=== PATIENT | male | born 1950 | race Caucasian/White ===

== ENCOUNTER 2021-10-22 11:39 | Inpatient (IN) | payer MEDICARE, MEDICAID, SELFPAY ==
[2021-10-22 12:36] VITALS: BP 132/85; PULSE 104; RESP 18; TEMP 36.8; O2SAT 98
--- NOTE | 2021-10-22 14:12 | HO.PSYADMNOT ---
HPI Date of Service: 10/22/21 Chief Complaint: schizoaffective d/o Sources of Information: patient interviewed, chart reviewed and crisis/core team assessment reviewed HPI Subjective Notes: Matthews Warning and Section 12B Narrative: The patient is a 71-year-old male, single, with no children, unemployed on disability, with a long history of psychotic disorder who resides in a supported living facility for chronically mentally ill patients, referred from another hospital for exacerbation of psychosis. According to that group, staff the patient has been in the [facility] several weeks and he had stopped his medications. The staff reported paranoid delusions, feeling unsafe and he mentioned that were intruders in his home tampering with his food and his belongings. He also believed that there are cameras over his head. On interview the patient was very pleasant, but he was paranoid and scared, he stated that his neighbors were harassing him with electronic devices and he came up with a very bizarre delusion regarding that the weight house and President mague were his guardians. He was able to contract for safety in the facility. He denies active suicidal ideations Past Psychiatric History: As per the patient, he has been most of his life admitted in to several facilities. Apparently, he has been on [facility] for long-term hospitalization. Medical Evaluation Reviewed: Hospitalist [facility] Pending [facility] Narrative: Denies medical problems Family History: Denies Social History: Chronically institutionalized, resident of a detention, he has a guardian and most likely on a [place] order Substance History: Denies Trauma History: Unknown Diagnostics Vital Signs (24Hr): Vital Signs - 24 hr 10/22/21 12:36 Temperature 98.3 F Pulse Rate 104 H Respiratory Rate 18 Blood Pressure 132/85 Pulse Oximetry 98 Meds/Allergies Meds Home Medications Acetaminophen (Acetaminophen 325 Mg Tablet) 650 mg PO Q6H PRN PRN Reason: Headache/Pain Mild Scale (1-3) Al Hydroxide/Mg Hydroxide (Magnesium Hydrox/Alum Hydrox 30 Ml Oral.Susp) 30 ml PO Q6H PRN PRN Reason: Heartburn/Nausea Divalproex Sodium (Divalproex Sodium 250 Mg Tablet.Dr) 250 mg PO BID SHERRY Hydroxyzine HCl (Hydroxyzine Hcl 25 Mg Tablet) 25 mg PO BEDTIME PRN PRN Reason: Anxiety Magnesium Hydroxide (Milk Of Magnesia 30 Ml Oral.Susp) 30 ml PO DAILY PRN PRN Reason: Constipation Olanzapine (Olanzapine 5 Mg Tablet) 5 mg PO BID PRN PRN Reason: Agitation Olanzapine (Olanzapine 7.5 Mg Tablet) 15 mg PO DAILY SHERRY Trazodone HCl (Trazodone Hcl 50 Mg Tablet) 50 mg PO BEDTIME PRN PRN Reason: Insomnia Allergies Allergies Allergy/AdvReac Type Severity Reaction Status Date / Time fluphenazine Allergy Unknown Verified 10/22/21 12:18 haloperidol [From Haldol] Allergy Unknown Verified 10/22/21 12:18 Mental Status Exam Mental Status Exam Patient Appearance: Disheveled and Unkempt Patient Orientation: Person and Situation Level of Consciousness: Awake Patient Behavior: Cooperative and Passive Mood Description: Suspicious and Withdrawn Affect Description: Labile Patient Cognition Impaired: Yes Ability to Follow Directions: Fair Speech Pattern: Clear Hallucinations: Auditory Delusions: Paranoid Ideation, Grandiose and Bizarre Thought Process: Racing and Evasive Thought Content: positive for Loose Associations and positive for Thought Blocking Judgement: Poor Assessment & Plan Assessment & Plan (1) Schizoaffective disorder: Status: Acute Code(s): F25.9 - Schizoaffective disorder, unspecified Plan The patient is a middle-age male with a long history of psychosis and mood lability, chronically situational lysed referred for out of our catchment area for exacerbation of psychotic symptoms and inability to take care of himself. Apparently, he has a guardian and most likely a years order, he is case managed by [facility]. Plan 1. Continue Zyprexa and Depakote as per medication reconciliation. 2. Gather collateral information. 3. Hospitalist consult since the patient is a direct admission Patient educated on: diagnosis and medication risk/benefits Informed Consent: further education needed Reason for continued inpatient stay Substantial Risk for: inability to function, rapid decompensation and med/psych decompensation
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
[2021-10-22 19:39] VITALS: BP 122/76; PULSE 99; RESP 18; TEMP 36.4; O2SAT 96
[2021-10-22] MEDS: Divalproex Sodium 250 MG TABLET.DR PO ×2 (19:47→19:50)
[2021-10-23 08:00] VITALS: BP 104/69; PULSE 81; RESP 16; TEMP 36.3; O2SAT 97
[2021-10-23] MEDS: OLANZapine 7.5 MG TABLET 15 MG PO (08:19)
[2021-10-23] MEDS: Divalproex Sodium 250 MG TABLET.DR PO (08:20)
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
--- NOTE | 2021-10-23 15:27 | HO.PSYCHPN ---
Subjective Subjective Date of Service: 10/23/21 Reason For Visit: schizoaffective d/o Subjective Notes: Conditional Voluntary Interim History: The nursing staff reported the patient sign a conditional voluntary, he has chronic persecutory and grandiose delusions but he is compliant with medications and he is in a good mood. He slept well and he ate all his meals. On interview, the patient reported that he feels over-sedated with Zyprexa 15 mg in the morning he requested to have all his medications at bedtime so I changed his Depakote to Depakote extended release and Zyprexa Zydis at night. He still grandiose and paranoid but easily redirectable. The social sciences department chair reported that the retirement stated that he has guardian on 2019 and our legal department we will look into that, so far we had an gather collateral information get Mental Status Exam Mental Status Exam Patient Appearance: Disheveled Patient Orientation: Person Level of Consciousness: Awake and Alert Patient Behavior: Guarded, Cooperative and Passive Mood Description: Suspicious and Withdrawn Affect Description: Constricted Ability to Follow Directions: Good Speech Pattern: Clear Hallucinations: None Delusions: Paranoid Ideation and Grandiose Thought Process: Distracted and Linear Thought Content: positive for Poverty of Content Judgement: Fair Diagnostics Vital Signs (24Hr): Vital Signs - 24 hr 10/22/21 19:39 10/23/21 08:00 Temperature 97.6 F 97.4 F Pulse Rate 99 81 Respiratory Rate 18 16 Blood Pressure 122/76 104/69 Pulse Oximetry 96 97 Medications Medications Current Medications Acetaminophen (Acetaminophen 325 Mg Tablet) 650 mg PO Q6H PRN PRN Reason: Headache/Pain Mild Scale (1-3) Al Hydroxide/Mg Hydroxide (Magnesium Hydrox/Alum Hydrox 30 Ml Oral.Susp) 30 ml PO Q6H PRN PRN Reason: Heartburn/Nausea Divalproex Sodium (Divalproex Sodium Er 500 Mg Tab.Er.24h) 500 mg PO BEDTIME SHERRY Hydroxyzine HCl (Hydroxyzine Hcl 25 Mg Tablet) 25 mg PO BEDTIME PRN PRN Reason: Anxiety Magnesium Hydroxide (Milk Of Magnesia 30 Ml Oral.Susp) 30 ml PO DAILY PRN PRN Reason: Constipation Olanzapine (Olanzapine 5 Mg Tablet) 5 mg PO BID PRN PRN Reason: Agitation Olanzapine (Olanzapine Odt 10 Mg Tab.Rapdis) 15 mg TRANSLINGU BEDTIME SHERRY Trazodone HCl (Trazodone Hcl 50 Mg Tablet) 50 mg PO BEDTIME PRN PRN Reason: Insomnia Allergies Allergies Allergy/AdvReac Type Severity Reaction Status Date / Time fluphenazine Allergy Unknown Verified 10/22/21 12:18 haloperidol [From Haldol] Allergy Unknown Verified 10/22/21 12:18 Assessment & Plan Assessment & Plan (1) Schizoaffective disorder: Status: Acute Code(s): F25.9 - Schizoaffective disorder, unspecified Plan 71-year-old gentleman resident of retirement with underlying history of psychotic disorder admitted to [facility] due to exacerbation of psychosis currently patient is awake alert denies acute medical complaints does not carry any past medical history, appears to be paranoid with bizarre delusions recommend to continue psych treatment. Plan: Change Depakote to Deapoket ER 500 mg po qhs and Zydis 15 mg po qhs I spent minutes with the patient and/or on the patient floor today, greater than?50% of which was spent counseling/coordinating care. Reason for contiued inpatient stay Substantial Risk for: inability to function, rapid decompensation and med/psych decompensation
[2021-10-23 19:53] VITALS: BP 85/55; PULSE 89; RESP 19; TEMP -13.1; TEMP 8.4; O2SAT 95
[2021-10-23] MEDS: Divalproex Sodium ER 500 MG TAB.ER.24H PO (20:16)
[2021-10-23] MEDS: OLANZapine ODT 10 MG TAB.RAPDIS 15 MG TRANSLINGU (20:17)
--- NOTE | 2021-10-24 07:45 | P.PNPSI_ITS ---
Subjective Subjective Date of Service: 10/24/21 Reason For Visit: schizoaffective d/o Subjective Notes: Conditional Voluntary Healthcare Proxy: No Guardianship: No Interim History: 10/23: The nursing staff reported the patient sign a conditional voluntary, he has chronic persecutory and grandiose delusions but he is compliant with medications and he is in a good mood. He slept well and he ate all his meals. On interview, the patient reported that he feels over-sedated with Zyprexa 15 mg in the morning he requested to have all his medications at bedtime so I changed his Depakote to Depakote extended release and Zyprexa Zydis at night. He still grandiose and paranoid but easily redirectable. The social services aide reported that the intermediate stated that he has guardian on 2019 and our legal department we will look into that, so far we had an gather collateral information get 10/24: Pleasant but disorganized. Has been writing a lot but writing is hard to follow. Hx Chronic psychosis. Ct Rx plan Medication Compliance: Yes Side effects from medications: No Review of Systems Acute medical concerns: No Medical Review of Systems: unchanged Review of Systems Review of Systems General no headache, no dizziness no fever chills. CVS no chest pain, no palpitation. Respiratory no cough, no sob. Gastrointestinal no nausea, no vomiting, no abdominal pain He denies any medical complaints and says he has no medical issues Yes all other systems are reviewed and are negative Mental Status Exam Mental Status Exam Patient Appearance: Disheveled Patient Orientation: Person Level of Consciousness: Awake and Alert Patient Behavior: Guarded, Cooperative and Passive Mood Description: Suspicious and Withdrawn Affect Description: Constricted Patient Cognition Impaired: Yes Ability to Follow Directions: Good Speech Pattern: Clear and Perseverating Thought Content: positive for Loose Associations Judgement: Poor Diagnostics Vital Signs (24Hr): Vital Signs - 24 hr 10/23/21 08:00 10/23/21 19:53 Temperature 97.4 F 8.4 F L Pulse Rate 81 89 Respiratory Rate 16 19 Blood Pressure 104/69 85/55 L Pulse Oximetry 97 95 Medications Medications Current Medications Acetaminophen (Acetaminophen 325 Mg Tablet) 650 mg PO Q6H PRN PRN Reason: Headache/Pain Mild Scale (1-3) Al Hydroxide/Mg Hydroxide (Magnesium Hydrox/Alum Hydrox 30 Ml Oral.Susp) 30 ml PO Q6H PRN PRN Reason: Heartburn/Nausea Divalproex Sodium (Divalproex Sodium Er 500 Mg Tab.Er.24h) 500 mg PO BEDTIME [facility] Last Admin: 10/23/21 20:16 Dose: 500 mg Documented by: Hydroxyzine HCl (Hydroxyzine Hcl 25 Mg Tablet) 25 mg PO BEDTIME PRN PRN Reason: Anxiety Magnesium Hydroxide (Milk Of Magnesia 30 Ml Oral.Susp) 30 ml PO DAILY PRN PRN Reason: Constipation Olanzapine (Olanzapine 5 Mg Tablet) 5 mg PO BID PRN PRN Reason: Agitation Olanzapine (Olanzapine Odt 10 Mg Tab.Rapdis) 15 mg TRANSLINGU BEDTIME [facility] Last Admin: 10/23/21 20:17 Dose: 15 mg Documented by: Trazodone HCl (Trazodone Hcl 50 Mg Tablet) 50 mg PO BEDTIME PRN PRN Reason: Insomnia Allergies Allergies Allergy/AdvReac Type Severity Reaction Status Date / Time fluphenazine Allergy Unknown Verified 10/22/21 12:18 haloperidol [From Haldol] Allergy Unknown Verified 10/22/21 12:18 Assessment & Plan Assessment & Plan (1) Schizoaffective disorder: Status: Acute Code(s): F25.9 - Schizoaffective disorder, unspecified Plan 71-year-old gentleman resident of intermediate with underlying history of psychotic disorder admitted to [facility] due to exacerbation of psychosis currently patient is awake alert denies acute medical complaints does not carry any past medical history, appears to be paranoid with bizarre delusions recommend to continue psych treatment. Plan: Change Depakote to Deapoket ER 500 mg po qhs and Zydis 15 mg po qhs 10/24 : Ct Rx plan. No med changes I spent minutes with the patient and/or on the patient floor today, greater than?50% of which was spent counseling/coordinating care. Informed Consent: does not understand Reason for contiued inpatient stay Substantial Risk for: inability to function and rapid decompensation
[2021-10-24 08:00] VITALS: BP 102/61; PULSE 96; RESP 18; TEMP 36.1; O2SAT 98
[2021-10-24] MEDS: Divalproex Sodium ER 500 MG TAB.ER.24H PO (20:14)
[2021-10-24] MEDS: OLANZapine ODT 10 MG TAB.RAPDIS 15 MG TRANSLINGU (20:14)
[2021-10-24 21:19] VITALS: BP 137/82; PULSE 106; RESP 18; TEMP 36.7; O2SAT 95
[2021-10-25 06:00] VITALS: BP 125/74; PULSE 78; TEMP 36.5; O2SAT 98
--- NOTE | 2021-10-25 12:09 | P.PNPSI_ITS ---
Subjective Subjective Date of Service: 10/25/21 Reason For Visit: schizoaffective d/o Interim History: 10/23: The nursing staff reported the patient sign a conditional voluntary, he has chronic persecutory and grandiose delusions but he is compliant with medications and he is in a good mood. He slept well and he ate all his meals. On interview, the patient reported that he feels over-sedated with Zyprexa 15 mg in the morning he requested to have all his medications at bedtime so I changed his Depakote to Depakote extended release and Zyprexa Zydis at night. He still grandiose and paranoid but easily redirectable. The social services counselor reported that the assisted stated that he has guardian on 2019 and our legal department we will look into that, so far we had an gather collateral information get 10/24: Pleasant but disorganized. Has been writing a lot but writing is hard to follow. Hx Chronic psychosis. Ct Rx plan 10/25: Pleasant, writing extensive notes, med compliant. No change in MS. States President Desmond owes him $ Review of Systems Review of Systems General no headache, no dizziness no fever chills. CVS no chest pain, no palpitation. Respiratory no cough, no sob. Gastrointestinal no nausea, no vomiting, no abdominal pain He denies any medical complaints and says he has no medical issues Yes all other systems are reviewed and are negative Mental Status Exam Mental Status Exam Patient Appearance: Disheveled Patient Orientation: Person Level of Consciousness: Awake and Alert Patient Behavior: Guarded, Cooperative and Passive Mood Description: Suspicious and Withdrawn Affect Description: Constricted Patient Cognition Impaired: Yes Ability to Follow Directions: Good Speech Pattern: Clear and Perseverating Diagnostics Vital Signs (24Hr): Vital Signs - 24 hr 10/24/21 08:00 10/24/21 21:19 Temperature 96.9 F 98.1 F Pulse Rate 96 106 H Respiratory Rate 18 18 Blood Pressure 102/61 137/82 Pulse Oximetry 98 95 Medications Medications Current Medications Acetaminophen (Acetaminophen 325 Mg Tablet) 650 mg PO Q6H PRN PRN Reason: Headache/Pain Mild Scale (1-3) Al Hydroxide/Mg Hydroxide (Magnesium Hydrox/Alum Hydrox 30 Ml Oral.Susp) 30 ml PO Q6H PRN PRN Reason: Heartburn/Nausea Divalproex Sodium (Divalproex Sodium Er 500 Mg Tab.Er.24h) 500 mg PO BEDTIME [facility] Last Admin: 10/24/21 20:14 Dose: 500 mg Documented by: Hydroxyzine HCl (Hydroxyzine Hcl 25 Mg Tablet) 25 mg PO BEDTIME PRN PRN Reason: Anxiety Magnesium Hydroxide (Milk Of Magnesia 30 Ml Oral.Susp) 30 ml PO DAILY PRN PRN Reason: Constipation Olanzapine (Olanzapine 5 Mg Tablet) 5 mg PO BID PRN PRN Reason: Agitation Olanzapine (Olanzapine Odt 10 Mg Tab.Rapdis) 15 mg TRANSLINGU BEDTIME [facility] Last Admin: 10/24/21 20:14 Dose: 15 mg Documented by: Trazodone HCl (Trazodone Hcl 50 Mg Tablet) 50 mg PO BEDTIME PRN PRN Reason: Insomnia Allergies Allergies Allergy/AdvReac Type Severity Reaction Status Date / Time fluphenazine Allergy Unknown Verified 10/22/21 12:18 haloperidol [From Haldol] Allergy Unknown Verified 10/22/21 12:18 Assessment & Plan Assessment & Plan (1) Schizoaffective disorder: Status: Acute Code(s): F25.9 - Schizoaffective disorder, unspecified Plan 71-year-old gentleman resident of assisted with underlying history of psychotic disorder admitted to [facility] due to exacerbation of psychosis currently patient is awake alert denies acute medical complaints does not carry any past medical history, appears to be paranoid with bizarre delusions recommend to continue psych treatment. Plan: Change Depakote to Deapoket ER 500 mg po qhs and Zydis 15 mg po qhs 10/24 : Ct Rx plan. No med changes 10/25: Ct Rx plan I spent minutes with the patient and/or on the patient floor today, greater than?50% of which was spent counseling/coordinating care. Reason for contiued inpatient stay Substantial Risk for: rapid decompensation
[2021-10-25 19:48] VITALS: BP 114/68; PULSE 108; RESP 18; TEMP 36.7; O2SAT 97
[2021-10-25] MEDS: Divalproex Sodium ER 500 MG TAB.ER.24H PO (20:40)
[2021-10-25] MEDS: OLANZapine ODT 10 MG TAB.RAPDIS 15 MG TRANSLINGU (20:42)
[2021-10-26 06:58] LABS: MANUAL DIFF FLAG NO
[2021-10-26 07:01] LABS: Basophils Absolute Auto 0.1 X10*3/uL (0.0-0.2); Basophils Percent Auto 0.7 % (0-2); Eosinophils Absolute Auto 0.4 X10*3/uL (0.0-0.4); Eosinophils Percent Auto 6.1 % (0-4); Hematocrit 46.9 % (42.0-52.0); Hemoglobin 15.7 g/dl (14.0-18.0); Imm Gran Abs Auto 0.02 X10*3/uL (0.00-0.03); Imm Gran Pct Auto 0.3 % (0.0-0.4); Lymphocytes Absolute Auto 2.9 X10*3/uL (1.2-4.9); Lymphocytes Percent Auto 40.5 % (20-40); Mean Corpuscular HGB Conc 33.5 g/dl (31.0-36.0); Mean Corpuscular Volume 95.5 fL (80.0-98.0); Mean Platelet Volume 9.7 fL (9.4-12.4); Monocytes Absolute Auto 0.7 X10*3/uL (0.1-1.2); Monocytes Percent Auto 9.2 % (2-11); Neutrophils Absolute Auto 3.1 x10*3/uL (2.0-8.3); Neutrophils Percent Auto 43.2 % (45-73); Platelet Count 291 X10*3/uL (160-400); Red Blood Count 4.91 X10*6/uL (4.60-5.80); Red Cell Distribution Width 12.5 % (11.0-16.0); White Blood Count 7.1 X10*3/uL (4.8-10.8)
[2021-10-26 07:32] LABS: Alanine Aminotransferase 12 U/L (0-40); Albumin Level 4.3 g/dL (3.5-5.0); Alkaline Phosphatase 90 U/L (39-117); Aspartate Amino Transferase 14 U/L (5-37); Bilirubin Direct 0.2 mg/dL (0.0-0.5); Bilirubin Total 0.8 mg/dL (0.0-1.0); Cholesterol 222 mg/dL; HDL Cholesterol 46 mg/dL; LDL Cholesterol Calculated 146 mg/dl; Total Protein 7.2 g/dL (6.5-8.0); Triglycerides 151 mg/dL
[2021-10-26 07:34] LABS: Estimated Average Glucose 140 mg/dL; Hemoglobin A1c % 6.5 %
[2021-10-26 07:53] LABS: Thyroid Stimulating Hormone 3.62 uIU/mL (0.32-4.0)
[2021-10-26 08:00] VITALS: BP 112/74; PULSE 101; RESP 14; TEMP 36.6; O2SAT 96
--- NOTE | 2021-10-26 17:42 | HO.PSYCHPN ---
Subjective Subjective Date of Service: 10/26/21 Reason For Visit: schizoaffective d/o Interim History: Patient seen and discussed with team. Patient evaluated this evening and upon interview he reports im doing good, im doing great. Says im doing alright with sleep and he is eating. He complains of urinary incontinence on the medication, denies that this happens off medication, says its embarrassing and happens because the medication makes me sleep, i didnt wanna wake up to urinate. Will order UA to r/o UTI, as he reports some burning with urination, off and on. Pt reports he likes his medication, I feel good on it, it doesnt disturb me for writing or nothing. Says he likes the depakote better than the zyprexa but insists that neither med bother him. Pt continues to endorse paranoid delusional thought content, says I hope I get out real soon, as Joshua Logan owes him money and is supposed to deliver it. Says he is also getting a diploma delivered. In the milieu, patient is safe and found in his room, has numerous papers with writing on them, unintelligle. Denies SI/SIB/HI upon inquiry. Denies irritability or assaultive ideation. Says he feels safe. Medication Compliance: Yes Side effects from medications: No Attending Groups: Yes Review of Systems Acute medical concerns: No Medical Review of Systems: unchanged Mental Status Exam Mental Status Exam Narrative: Patient Appearance:?Well Grooomed Patient Orientation:?Person and Situation Level of Consciousness:?Awake and Appropriate Patient Behavior:?Cooperative Mood Description:?Calm and Relaxed Affect Description:?Constricted Ability to Follow Directions:?Good Speech Pattern:?Clear Hallucinations:?None Delusions:?Paranoid Ideation and Grandiose Thought Process:?Distracted and Linear Thought Content:?positive for [place], positive for Circumstantial and positive for Poverty of Content Judgement:?Fair Diagnostics Vital Signs (24Hr): Vital Signs - 24 hr 10/25/21 19:48 10/26/21 08:00 Temperature 98.1 F 98 F Pulse Rate 108 H 101 H Respiratory Rate 18 14 Blood Pressure 114/68 112/74 Pulse Oximetry 97 96 Labs Results: 10/26/21 06:52 Labs: Laboratory Results - last 48 hr 10/26/21 10/26/21 10/26/21 06:52 06:52 06:52 WBC 7.1 RBC 4.91 Hgb 15.7 Hct 46.9 MCV 95.5 MCH 32.0 MCHC 33.5 RDW 12.5 Plt Count 291 MPV 9.7 Immature Gran % (Auto) 0.3 Neut % (Auto) 43.2 L Lymph % (Auto) 40.5 H [place] % (Auto) 9.2 Eos % (Auto) 6.1 H Baso % (Auto) 0.7 Lymph # (Auto) 2.9 [place] # (Auto) 0.7 Eos # (Auto) 0.4 Baso # (Auto) 0.1 Abs Immat Gran (auto) 0.02 Absolute Neuts (auto) 3.1 Absolute Nucleated RBC 0.000 Nucleated RBC % (auto) 0.0 Estimat Average Glucose 140 Hemoglobin A1c % 6.5 Total Bilirubin 0.8 Direct Bilirubin 0.2 AST 14 ALT 12 Alkaline Phosphatase 90 Total Protein 7.2 Albumin 4.3 Triglycerides 151 Cholesterol 222 LDL Cholesterol, Calc 146 HDL Cholesterol 46 TSH 3.62 Valproic Acid 26.0 L Medications Medications Current Medications Acetaminophen (Acetaminophen 325 Mg Tablet) 650 mg PO Q6H PRN PRN Reason: Headache/Pain Mild Scale (1-3) Al Hydroxide/Mg Hydroxide (Magnesium Hydrox/Alum Hydrox 30 Ml Oral.Susp) 30 ml PO Q6H PRN PRN Reason: Heartburn/Nausea Divalproex Sodium (Divalproex Sodium Er 500 Mg Tab.Er.24h) 500 mg PO BEDTIME [facility] Last Admin: 10/25/21 20:40 Dose: 500 mg Documented by: Hydroxyzine HCl (Hydroxyzine Hcl 25 Mg Tablet) 25 mg PO BEDTIME PRN PRN Reason: Anxiety Magnesium Hydroxide (Milk Of Magnesia 30 Ml Oral.Susp) 30 ml PO DAILY PRN PRN Reason: Constipation Olanzapine (Olanzapine 5 Mg Tablet) 5 mg PO BID PRN PRN Reason: Agitation Olanzapine (Olanzapine Odt 10 Mg Tab.Rapdis) 15 mg TRANSLINGU BEDTIME [facility] Last Admin: 10/25/21 20:42 Dose: 15 mg Documented by: Trazodone HCl (Trazodone Hcl 50 Mg Tablet) 50 mg PO BEDTIME PRN PRN Reason: Insomnia Allergies Allergies Allergy/AdvReac Type Severity Reaction Status Date / Time fluphenazine Allergy Unknown Verified 10/22/21 12:18 haloperidol [From Haldol] Allergy Unknown Verified 10/22/21 12:18 Assessment & Plan Assessment & Plan (1) Schizoaffective disorder: Status: Acute Code(s): F25.9 - Schizoaffective disorder, unspecified Plan 71-year-old gentleman resident of [facility] with underlying history of psychotic disorder admitted to [facility] due to exacerbation of psychosis currently patient is awake alert denies acute medical complaints does not carry any past medical history, appears to be paranoid with bizarre delusions recommend to continue psych treatment. Plan: Change Depakote to Deapoket ER 500 mg po qhs and Zydis 15 mg po qhs 10/24 : Ct Rx plan. No med changes 10/25: Ct Rx plan 10/26: Continue meds unchanged, pt is delusional but calm and cooperative. I spent minutes with the patient and/or on the patient floor today, greater than?50% of which was spent counseling/coordinating care. Reason for contiued inpatient stay Substantial Risk for: rapid decompensation and med/psych decompensation
[2021-10-26 19:25] LABS: Appearance Urine CLEAR; Color Urine YELLOW; Glucose Urine UA 100 MG/DL (NEG); Leukocyte Esterase Urine NEG (NEG); Nitrite Urine NEG (NEG); Urine Blood NEG (NEG); Urine Ketones 5 MG/DL (NEG); Urine Protein NEG (NEG-TRACE)
[2021-10-26] MEDS: OLANZapine ODT 10 MG TAB.RAPDIS 15 MG TRANSLINGU (20:00)
[2021-10-26] MEDS: Divalproex Sodium ER 500 MG TAB.ER.24H PO (20:00)
[2021-10-26 21:32] VITALS: BP 128/78; PULSE 104; RESP 18; TEMP 36.6; O2SAT 96
[2021-10-27 08:15] VITALS: BP 117/75; PULSE 84; RESP 18; TEMP 36.6; O2SAT 97
--- NOTE | 2021-10-27 15:25 | HO.PSYCHPN ---
Subjective Subjective Date of Service: 10/27/21 Reason For Visit: schizoaffective d/o Subjective Notes: Conditional Voluntary Interim History: The nursing staff reported the patient has been compliant with treatment. Apparently, history years order but he is still under guardianship, we will try to gather more collateral information by [facility]. On interview, the patient reports that he is doing fine he denies side effects. The staff reported that he is chronically paranoid and grandiose but easily redirectable. Mental Status Exam Mental Status Exam Patient Appearance: Disheveled Patient Orientation: Person and Situation Level of Consciousness: Awake Patient Behavior: Guarded and Cooperative Mood Description: Suspicious and Withdrawn Affect Description: Constricted Ability to Follow Directions: Good Speech Pattern: Clear Memory Description: Intact Hallucinations: None Delusions: Paranoid Ideation and Grandiose Thought Process: Linear Thought Content: positive for Circumstantial Judgement: Fair Diagnostics Vital Signs (24Hr): Vital Signs - 24 hr 10/26/21 21:32 10/27/21 08:15 Temperature 97.9 F 97.9 F Pulse Rate 104 H 84 Respiratory Rate 18 18 Blood Pressure 128/78 117/75 Pulse Oximetry 96 97 Labs Results: 10/26/21 06:52 Labs: Laboratory Results - last 48 hr 10/26/21 10/26/21 10/26/21 06:52 06:52 06:52 WBC 7.1 RBC 4.91 Hgb 15.7 Hct 46.9 MCV 95.5 MCH 32.0 MCHC 33.5 RDW 12.5 Plt Count 291 MPV 9.7 Immature Gran % (Auto) 0.3 Neut % (Auto) 43.2 L Lymph % (Auto) 40.5 H [place] % (Auto) 9.2 Eos % (Auto) 6.1 H Baso % (Auto) 0.7 Lymph # (Auto) 2.9 [place] # (Auto) 0.7 Eos # (Auto) 0.4 Baso # (Auto) 0.1 Abs Immat Gran (auto) 0.02 Absolute Neuts (auto) 3.1 Absolute Nucleated RBC 0.000 Nucleated RBC % (auto) 0.0 Estimat Average Glucose 140 Hemoglobin A1c % 6.5 Total Bilirubin 0.8 Direct Bilirubin 0.2 AST 14 ALT 12 Alkaline Phosphatase 90 Total Protein 7.2 Albumin 4.3 Triglycerides 151 Cholesterol 222 LDL Cholesterol, Calc 146 HDL Cholesterol 46 TSH 3.62 Urine Color Urine Appearance Urine pH Ur Specific [place] Urine Protein Urine Glucose (UA) Urine Ketones Urine Blood Urine Nitrite Ur Leukocyte Esterase Valproic Acid 26.0 L 10/26/21 19:20 WBC RBC Hgb Hct MCV MCH MCHC RDW Plt Count MPV Immature Gran % (Auto) Neut % (Auto) Lymph % (Auto) [place] % (Auto) Eos % (Auto) Baso % (Auto) Lymph # (Auto) [place] # (Auto) Eos # (Auto) Baso # (Auto) Abs Immat Gran (auto) Absolute Neuts (auto) Absolute Nucleated RBC Nucleated RBC % (auto) Estimat Average Glucose Hemoglobin A1c % Total Bilirubin Direct Bilirubin AST ALT Alkaline Phosphatase Total Protein Albumin Triglycerides Cholesterol LDL Cholesterol, Calc HDL Cholesterol TSH Urine Color YELLOW Urine Appearance CLEAR Urine pH 6.0 Ur Specific [place] 1.010 Urine Protein NEG Urine Glucose (UA) 100 H Urine Ketones 5 Urine Blood NEG Urine Nitrite NEG Ur Leukocyte Esterase NEG Valproic Acid Medications Medications Current Medications Acetaminophen (Acetaminophen 325 Mg Tablet) 650 mg PO Q6H PRN PRN Reason: Headache/Pain Mild Scale (1-3) Al Hydroxide/Mg Hydroxide (Magnesium Hydrox/Alum Hydrox 30 Ml Oral.Susp) 30 ml PO Q6H PRN PRN Reason: Heartburn/Nausea Divalproex Sodium (Divalproex Sodium Er 500 Mg Tab.Er.24h) 500 mg PO BEDTIME [facility] Last Admin: 10/26/21 20:00 Dose: 500 mg Documented by: Hydroxyzine HCl (Hydroxyzine Hcl 25 Mg Tablet) 25 mg PO BEDTIME PRN PRN Reason: Anxiety Magnesium Hydroxide (Milk Of Magnesia 30 Ml Oral.Susp) 30 ml PO DAILY PRN PRN Reason: Constipation Olanzapine (Olanzapine 5 Mg Tablet) 5 mg PO BID PRN PRN Reason: Agitation Olanzapine (Olanzapine Odt 10 Mg Tab.Rapdis) 15 mg TRANSLINGU BEDTIME [facility] Last Admin: 10/26/21 20:00 Dose: 15 mg Documented by: Trazodone HCl (Trazodone Hcl 50 Mg Tablet) 50 mg PO BEDTIME PRN PRN Reason: Insomnia Allergies Allergies Allergy/AdvReac Type Severity Reaction Status Date / Time fluphenazine Allergy Unknown Verified 10/22/21 12:18 haloperidol [From Haldol] Allergy Unknown Verified 10/22/21 12:18 Assessment & Plan Assessment & Plan (1) Schizoaffective disorder: Status: Acute Code(s): F25.9 - Schizoaffective disorder, unspecified Plan The patient is an elderly male with a long history of schizoaffective disorder bipolar type, chronically institutionalized in the past, case managed by [facility] admitted for exacerbation of symptoms in the context of noncompliance. Plan 1. Continue Zyprexa 20 mg p.o. q.h.s. 2. His Depakote level is 25, very low we will increase it up to 750 p.o. q.h.s. and recheck in 3 days. 3. Gather collateral information. I spent minutes with the patient and/or on the patient floor today, greater than?50% of which was spent counseling/coordinating care. Reason for contiued inpatient stay Substantial Risk for: inability to function, rapid decompensation and med/psych decompensation
[2021-10-27 21:27] VITALS: BP 136/70; PULSE 101; RESP 19; TEMP 36.9; O2SAT 96
[2021-10-27] MEDS: OLANZapine ODT 10 MG TAB.RAPDIS 15 MG TRANSLINGU (21:32)
[2021-10-27] MEDS: Divalproex Sodium ER 250 MG TAB.ER.24H 750 MG PO (21:42)
[2021-10-28 08:00] VITALS: BP 119/76; PULSE 105; RESP 20; TEMP 36.2; O2SAT 97
--- NOTE | 2021-10-28 12:36 | HO.PSYCHPN ---
Subjective Subjective Date of Service: 10/28/21 Reason For Visit: schizoaffective d/o Subjective Notes: Conditional Voluntary Interim History: The nursing staff reported the patient has been compliant with medication. Apparently he is in a row years and a guardianship and according to [facility], he is chronically psychotic with delusive statements but able to function in the community. The certified social workers in health care will contact the [facility] team tomorrow. On interview, the patient denies new symptoms he is pleasant and cooperative. The staff has reported that he comes up with delusions but he is easily redirectable. His Depakote level is low and it has been increased. Mental Status Exam Mental Status Exam Patient Appearance: Disheveled Patient Orientation: Person and Situation Level of Consciousness: Awake Patient Behavior: Cooperative Mood Description: Depressed Affect Description: Constricted Patient Cognition Impaired: No Ability to Follow Directions: Good Speech Pattern: Clear Hallucinations: None Delusions: Paranoid Ideation and Grandiose Perceptual Disturbances: Hallucinations and Illusions Thought Process: Illogical Thought Content: positive for Obsessional Thoughts, positive for [place], positive for Poverty of Content and positive for Loose Associations Judgement: Fair Diagnostics Vital Signs (24Hr): Vital Signs - 24 hr 10/27/21 21:27 10/28/21 08:00 Temperature 98.5 F 97.2 F Pulse Rate 101 H 105 H Respiratory Rate 19 20 Blood Pressure 136/70 119/76 Pulse Oximetry 96 97 Labs Results: 10/26/21 06:52 Labs: Laboratory Results - last 48 hr 10/26/21 19:20 Urine Color YELLOW Urine Appearance CLEAR Urine pH 6.0 Ur Specific [place] 1.010 Urine Protein NEG Urine Glucose (UA) 100 H Urine Ketones 5 Urine Blood NEG Urine Nitrite NEG Ur Leukocyte Esterase NEG Medications Medications Current Medications Acetaminophen (Acetaminophen 325 Mg Tablet) 650 mg PO Q6H PRN PRN Reason: Headache/Pain Mild Scale (1-3) Al Hydroxide/Mg Hydroxide (Magnesium Hydrox/Alum Hydrox 30 Ml Oral.Susp) 30 ml PO Q6H PRN PRN Reason: Heartburn/Nausea Divalproex Sodium (Divalproex Sodium Er 250 Mg Tab.Er.24h) 750 mg PO BEDTIME [facility] Last Admin: 10/27/21 21:42 Dose: 750 mg Documented by: Hydroxyzine HCl (Hydroxyzine Hcl 25 Mg Tablet) 25 mg PO BEDTIME PRN PRN Reason: Anxiety Magnesium Hydroxide (Milk Of Magnesia 30 Ml Oral.Susp) 30 ml PO DAILY PRN PRN Reason: Constipation Olanzapine (Olanzapine 5 Mg Tablet) 5 mg PO BID PRN PRN Reason: Agitation Olanzapine (Olanzapine Odt 10 Mg Tab.Rapdis) 15 mg TRANSLINGU BEDTIME [facility] Last Admin: 10/27/21 21:32 Dose: 15 mg Documented by: Trazodone HCl (Trazodone Hcl 50 Mg Tablet) 50 mg PO BEDTIME PRN PRN Reason: Insomnia Allergies Allergies Allergy/AdvReac Type Severity Reaction Status Date / Time fluphenazine Allergy Unknown Verified 10/22/21 12:18 haloperidol [From Haldol] Allergy Unknown Verified 10/22/21 12:18 Assessment & Plan Assessment & Plan (1) Schizoaffective disorder: Status: Acute Code(s): F25.9 - Schizoaffective disorder, unspecified Plan The patient is an elderly male with a long history of schizoaffective disorder bipolar type, chronically institutionalized in the past, case managed by [facility] admitted for exacerbation of symptoms in the context of noncompliance. Plan 1. Continue Zyprexa 20 mg p.o. q.h.s. and Depakote 750 mg daily. 2. His Depakote level is 25 on Depakote 500 mg p.o. q.h.s. so we will recheck on Tuesday. 3. Gather collateral information. I spent minutes with the patient and/or on the patient floor today, greater than?50% of which was spent counseling/coordinating care. Reason for contiued inpatient stay Substantial Risk for: inability to function, rapid decompensation and med/psych decompensation
[2021-10-28 19:52] VITALS: BP 133/87; PULSE 115; RESP 18; TEMP 36.6; O2SAT 96
[2021-10-28] MEDS: Divalproex Sodium ER 250 MG TAB.ER.24H 750 MG PO (20:35)
[2021-10-28] MEDS: OLANZapine ODT 10 MG TAB.RAPDIS 15 MG TRANSLINGU (20:39)
[2021-10-29 05:46] VITALS: BMI 24.9
[2021-10-29 06:00] VITALS: BP 101/70; PULSE 89; RESP 16; TEMP 36.7; O2SAT 92
--- NOTE | 2021-10-29 13:28 | P.PNPSI_ITS ---
Subjective Subjective Date of Service: 10/29/21 Reason For Visit: schizoaffective d/o Subjective Notes: Conditional Voluntary Interim History: The nursing staff reported the patient has been cooperative and pleasant, internally preoccupied at times. He has also illogical at times but easily redirectable. Today the social work administrator met with his [facility] team and they agreed to discharge him to the community are early next week. On interview, the patient denies new symptoms he feels comfortable and safe here in the facility. Mental Status Exam Mental Status Exam Patient Appearance: Disheveled Patient Orientation: Person and Situation Level of Consciousness: Awake Patient Behavior: Cooperative Mood Description: Withdrawn Affect Description: Constricted Patient Cognition Impaired: Yes Ability to Follow Directions: Good Speech Pattern: Clear Memory Description: Intact Hallucinations: Auditory Delusions: Not Present Thought Process: Illogical Thought Content: positive for Loose Associations Judgement: Fair Diagnostics Vital Signs (24Hr): Vital Signs - 24 hr 10/28/21 19:52 10/29/21 06:00 Temperature 97.8 F 98.1 F Pulse Rate 115 H 89 Respiratory Rate 18 16 Blood Pressure 133/87 101/70 Pulse Oximetry 96 92 BMI result Body Mass Index 24.9 Labs Results: 10/26/21 06:52 Medications Medications Current Medications Acetaminophen (Acetaminophen 325 Mg Tablet) 650 mg PO Q6H PRN PRN Reason: Headache/Pain Mild Scale (1-3) Al Hydroxide/Mg Hydroxide (Magnesium Hydrox/Alum Hydrox 30 Ml Oral.Susp) 30 ml PO Q6H PRN PRN Reason: Heartburn/Nausea Divalproex Sodium (Divalproex Sodium Er 250 Mg Tab.Er.24h) 750 mg PO BEDTIME [facility] Last Admin: 10/28/21 20:35 Dose: 750 mg Documented by: Hydroxyzine HCl (Hydroxyzine Hcl 25 Mg Tablet) 25 mg PO BEDTIME PRN PRN Reason: Anxiety Magnesium Hydroxide (Milk Of Magnesia 30 Ml Oral.Susp) 30 ml PO DAILY PRN PRN Reason: Constipation Olanzapine (Olanzapine 5 Mg Tablet) 5 mg PO BID PRN PRN Reason: Agitation Olanzapine (Olanzapine Odt 10 Mg Tab.Rapdis) 15 mg TRANSLINGU BEDTIME [facility] Last Admin: 10/28/21 20:39 Dose: 15 mg Documented by: Trazodone HCl (Trazodone Hcl 50 Mg Tablet) 50 mg PO BEDTIME PRN PRN Reason: Insomnia Allergies Allergies Allergy/AdvReac Type Severity Reaction Status Date / Time fluphenazine Allergy Unknown Verified 10/22/21 12:18 haloperidol [From Haldol] Allergy Unknown Verified 10/22/21 12:18 Assessment & Plan Assessment & Plan (1) Schizoaffective disorder: Status: Acute Code(s): F25.9 - Schizoaffective disorder, unspecified Plan The patient is an elderly male with a long history of schizoaffective disorder bipolar type, chronically institutionalized in the past, case managed by [facility] admitted for exacerbation of symptoms in the context of noncompliance. Plan 1. Continue Zyprexa 20 mg p.o. q.h.s. and Depakote 750 mg daily. 2. His Depakote level is 25 on Depakote 500 mg p.o. q.h.s. so we will recheck on Tuesday since we increased the Depakote up to 750 mg p.o. Q 3. Gather collateral information. I spent minutes with the patient and/or on the patient floor today, gr eater than?50% of which was spent counseling/coordinating care. Reason for contiued inpatient stay Substantial Risk for: inability to function, rapid decompensation and med/psych decompensation
[2021-10-29 20:18] VITALS: BP 110/57; PULSE 102; RESP 18; TEMP 37.1; O2SAT 95
[2021-10-29] MEDS: Divalproex Sodium ER 250 MG TAB.ER.24H 750 MG PO (20:24)
[2021-10-29] MEDS: OLANZapine ODT 10 MG TAB.RAPDIS 15 MG TRANSLINGU (20:26)
[2021-10-30 08:00] VITALS: BP 111/74; PULSE 85; TEMP 36.2; O2SAT 96
[2021-10-30 10:26] LABS: Valproate 41.6 mcg/mL (50.0-100.0)
--- NOTE | 2021-10-30 12:04 | HO.PSYCHPN ---
Subjective Subjective Date of Service: 10/30/21 Reason For Visit: schizoaffective d/o Subjective Notes: Conditional Voluntary Interim History: The nursing staff reports the patient remains delusional but easily redirectable. Yesterday, the clinical social work aide met with her primary team at [facility] and apparently the patient did not like Invega Dkenna even though that he did very well on long-acting injectables. On interview, the patient denies new symptoms, he is pleasant and cooperative. His Depakote level is 42.9 at 750 mg a day. Since the patient looks at baseline we will keep the Depakote that this dose. Mental Status Exam Mental Status Exam Patient Appearance: Well Grooomed Patient Orientation: Person and Situation Level of Consciousness: Awake and Appropriate Patient Behavior: Cooperative Mood Description: Calm and Relaxed Affect Description: Constricted Ability to Follow Directions: Good Speech Pattern: Clear Hallucinations: None Delusions: Paranoid Ideation and Grandiose Thought Process: Distracted and Linear Thought Content: positive for [place], positive for Circumstantial and positive for Poverty of Content Judgement: Fair Diagnostics Vital Signs (24Hr): Vital Signs - 24 hr 10/29/21 20:18 10/30/21 08:00 Temperature 98.7 F 97.1 F Pulse Rate 102 H 85 Respiratory Rate 18 Blood Pressure 110/57 L 111/74 Pulse Oximetry 95 96 BMI result Body Mass Index 24.9 Labs Results: 10/26/21 06:52 Labs: Laboratory Results - last 48 hr 10/30/21 08:52 Valproic Acid 41.6 L Medications Medications Current Medications Acetaminophen (Acetaminophen 325 Mg Tablet) 650 mg PO Q6H PRN PRN Reason: Headache/Pain Mild Scale (1-3) Al Hydroxide/Mg Hydroxide (Magnesium Hydrox/Alum Hydrox 30 Ml Oral.Susp) 30 ml PO Q6H PRN PRN Reason: Heartburn/Nausea Divalproex Sodium (Divalproex Sodium Er 250 Mg Tab.Er.24h) 750 mg PO BEDTIME [facility] Last Admin: 10/29/21 20:24 Dose: 750 mg Documented by: Hydroxyzine HCl (Hydroxyzine Hcl 25 Mg Tablet) 25 mg PO BEDTIME PRN PRN Reason: Anxiety Magnesium Hydroxide (Milk Of Magnesia 30 Ml Oral.Susp) 30 ml PO DAILY PRN PRN Reason: Constipation Olanzapine (Olanzapine 5 Mg Tablet) 5 mg PO BID PRN PRN Reason: Agitation Olanzapine (Olanzapine Odt 10 Mg Tab.Rapdis) 15 mg TRANSLINGU BEDTIME [facility] Last Admin: 10/29/21 20:26 Dose: 15 mg Documented by: Trazodone HCl (Trazodone Hcl 50 Mg Tablet) 50 mg PO BEDTIME PRN PRN Reason: Insomnia Allergies Allergies Allergy/AdvReac Type Severity Reaction Status Date / Time fluphenazine Allergy Unknown Verified 10/22/21 12:18 haloperidol [From Haldol] Allergy Unknown Verified 10/22/21 12:18 Assessment & Plan Assessment & Plan (1) Schizoaffective disorder: Status: Acute Code(s): F25.9 - Schizoaffective disorder, unspecified Plan The patient is an elderly male with a long history of schizoaffective disorder bipolar type, chronically institutionalized in the past, case managed by [facility] admitted for exacerbation of symptoms in the context of noncompliance. Plan 1. Continue Zyprexa 15 mg p.o. q.h.s. and Depakote 750 mg daily. 2. His Depakote level is 42.9 at a dose of 750 daily. At this point we will not increase more Depakote 3. Gather collateral information, possible discharge for November 04. I spent minutes with the patient and/or on the patient floor today, greater than?50% of which was spent counseling/coordinating care. Reason for contiued inpatient stay Substantial Risk for: inability to function, rapid decompensation and med/psych decompensation
[2021-10-30 20:12] VITALS: BP 135/82; PULSE 96; RESP 17; TEMP 36.1; O2SAT 96
[2021-10-30] MEDS: OLANZapine ODT 10 MG TAB.RAPDIS 15 MG TRANSLINGU (20:39)
[2021-10-30] MEDS: Divalproex Sodium ER 250 MG TAB.ER.24H 750 MG PO (20:39)
[2021-10-31 08:41] VITALS: BP 107/69; PULSE 101; RESP 16; TEMP 36.3; O2SAT 93
--- NOTE | 2021-10-31 14:34 | P.PNPSI_ITS ---
Subjective Subjective Date of Service: 10/31/21 Reason For Visit: schizoaffective d/o Interim History: Patient seen and discussed with team. Patient seen in his room. He reports I have good news, I am leaving Tuesday . He reports he is feeling better. He is happy to be going back home. He reports he still has thoughts that people were entering his apartment and that President Joshua Logan owes me and he will come over or send the government Doing well with sleep and he is eating. Pt reports he likes his medication. Says he likes the depakote. Denies SI/SIB/HI upon inquiry. Denies irritability or assaultive ideation. Says he feels safe. Review of Systems Review of Systems Yes all other systems are reviewed and are negative Mental Status Exam Mental Status Exam Narrative: Patient Appearance:?Well Grooomed Patient Orientation:?Person and Situation Level of Consciousness:?Awake and Appropriate Patient Behavior:?Cooperative Mood Description:?Calm and Relaxed Affect Description:?Constricted Ability to Follow Directions:?Good Speech Pattern:?Clear Hallucinations:?None Delusions:?Paranoid Ideation and Grandiose Thought Process:?Distracted and Linear Thought Content:?positive for [place], positive for Circumstantial and positive for Poverty of Content Judgement:?Fair Patient Appearance: Well Grooomed Patient Orientation: Person and Situation Level of Consciousness: Awake and Appropriate Patient Behavior: Cooperative Mood Description: Calm and Relaxed Affect Description: Constricted Patient Cognition Impaired: Yes Ability to Follow Directions: Good Speech Pattern: Clear Memory Description: Intact Delusions: Paranoid Ideation and Grandiose Judgement: Fair Diagnostics Vital Signs (24Hr): Vital Signs - 24 hr 10/30/21 20:12 10/31/21 08:41 Temperature 97 F 97.3 F Pulse Rate 96 101 H Respiratory Rate 17 16 Blood Pressure 135/82 107/69 Pulse Oximetry 96 93 BMI result Body Mass Index 24.9 Labs Results: 10/26/21 06:52 Labs: Laboratory Results - last 48 hr 10/30/21 08:52 Valproic Acid 41.6 L Medications Medications Current Medications Acetaminophen (Acetaminophen 325 Mg Tablet) 650 mg PO Q6H PRN PRN Reason: Headache/Pain Mild Scale (1-3) Al Hydroxide/Mg Hydroxide (Magnesium Hydrox/Alum Hydrox 30 Ml Oral.Susp) 30 ml PO Q6H PRN PRN Reason: Heartburn/Nausea Divalproex Sodium (Divalproex Sodium Er 250 Mg Tab.Er.24h) 750 mg PO BEDTIME [facility] Last Admin: 10/30/21 20:39 Dose: 750 mg Documented by: Hydroxyzine HCl (Hydroxyzine Hcl 25 Mg Tablet) 25 mg PO BEDTIME PRN PRN Reason: Anxiety Magnesium Hydroxide (Milk Of Magnesia 30 Ml Oral.Susp) 30 ml PO DAILY PRN PRN Reason: Constipation Olanzapine (Olanzapine 5 Mg Tablet) 5 mg PO BID PRN PRN Reason: Agitation Olanzapine (Olanzapine Odt 10 Mg Tab.Rapdis) 15 mg TRANSLINGU BEDTIME [facility] Last Admin: 10/30/21 20:39 Dose: 15 mg Documented by: Trazodone HCl (Trazodone Hcl 50 Mg Tablet) 50 mg PO BEDTIME PRN PRN Reason: Insomnia Allergies Allergies Allergy/AdvReac Type Severity Reaction Status Date / Time fluphenazine Allergy Unknown Verified 10/22/21 12:18 haloperidol [From Haldol] Allergy Unknown Verified 10/22/21 12:18 Assessment & Plan Assessment & Plan (1) Schizoaffective disorder: Status: Acute Code(s): F25.9 - Schizoaffective disorder, unspecified Plan 71-year-old gentleman resident of [facility] with underlying history of psychotic disorder admitted to [facility] due to exacerbation of psychosis currently patient is awake alert denies acute medical complaints does not carry any past medical history, appears to be paranoid with bizarre delusions recommend to continue psych treatment. Plan: Change Depakote to Deapoket ER 500 mg po qhs and Zydis 15 mg po qhs 10/24 : Ct Rx plan. No med changes 10/25: Ct Rx plan 10/26: Continue meds unchanged, pt is delusional but calm and cooperative 10/31/ No change in medications. I spent minutes with the patient and/or on the patient floor today, greater than?50% of which was spent counseling/coordinating care. Patient educated on: medication risk/benefits and therapeutic strategies Reason for contiued inpatient stay Substantial Risk for: inability to function and rapid decompensation
[2021-10-31 18:00] VITALS: BP 114/76; PULSE 86; RESP 18; TEMP 36.8; O2SAT 97
[2021-10-31] MEDS: Divalproex Sodium ER 250 MG TAB.ER.24H 750 MG PO (20:54)
[2021-10-31] MEDS: OLANZapine ODT 10 MG TAB.RAPDIS 15 MG TRANSLINGU (20:59)
[2021-11-01 07:58] VITALS: BP 92/67; PULSE 101; RESP 20; TEMP 36.6; O2SAT 96
--- NOTE | 2021-11-01 17:27 | HO.PSYCHPN ---
Subjective Subjective Date of Service: 11/01/21 Reason For Visit: schizoaffective d/o Interim History: Patient seen and discussed with team. Continues with delusions but happy because he is leving soon. He is omproved per nursing staff and his delusions may be at baseline. He denies SI. Doing well with sleep and he is eating. Pt reports he likes his medication. Says he likes the depakote. Denies SI/SIB/HI upon inquiry. Denies irritability or assaultive ideation. Says he feels safe. Review of Systems Review of Systems Yes all other systems are reviewed and are negative Mental Status Exam Mental Status Exam Narrative: Patient Appearance:?Well Grooomed Patient Orientation:?Person and Situation Level of Consciousness:?Awake and Appropriate Patient Behavior:?Cooperative Mood Description:?Calm and Relaxed Affect Description:?Constricted Ability to Follow Directions:?Good Speech Pattern:?Clear Hallucinations:?None Delusions:?Paranoid Ideation and Grandiose Thought Process:?Distracted and Linear Thought Content:?positive for [place], positive for Circumstantial and positive for Poverty of Content Judgement:?Fair Patient Appearance: Well Grooomed Patient Orientation: Person and Situation Level of Consciousness: Awake and Appropriate Patient Behavior: Cooperative Mood Description: Calm and Relaxed Affect Description: Constricted Patient Cognition Impaired: Yes Ability to Follow Directions: Good Speech Pattern: Clear Memory Description: Intact Diagnostics Vital Signs (24Hr): Vital Signs - 24 hr 10/31/21 18:00 11/01/21 07:58 Temperature 98.3 F 97.9 F Pulse Rate 86 101 H Respiratory Rate 18 20 Blood Pressure 114/76 92/67 Pulse Oximetry 97 96 BMI result Body Mass Index 24.9 Labs Results: 10/26/21 06:52 Medications Medications Current Medications Acetaminophen (Acetaminophen 325 Mg Tablet) 650 mg PO Q6H PRN PRN Reason: Headache/Pain Mild Scale (1-3) Al Hydroxide/Mg Hydroxide (Magnesium Hydrox/Alum Hydrox 30 Ml Oral.Susp) 30 ml PO Q6H PRN PRN Reason: Heartburn/Nausea Divalproex Sodium (Divalproex Sodium Er 250 Mg Tab.Er.24h) 750 mg PO BEDTIME [facility] Last Admin: 10/31/21 20:54 Dose: 750 mg Documented by: Hydroxyzine HCl (Hydroxyzine Hcl 25 Mg Tablet) 25 mg PO BEDTIME PRN PRN Reason: Anxiety Magnesium Hydroxide (Milk Of Magnesia 30 Ml Oral.Susp) 30 ml PO DAILY PRN PRN Reason: Constipation Olanzapine (Olanzapine 5 Mg Tablet) 5 mg PO BID PRN PRN Reason: Agitation Olanzapine (Olanzapine Odt 10 Mg Tab.Rapdis) 15 mg TRANSLINGU BEDTIME [facility] Last Admin: 10/31/21 20:59 Dose: 15 mg Documented by: Trazodone HCl (Trazodone Hcl 50 Mg Tablet) 50 mg PO BEDTIME PRN PRN Reason: Insomnia Allergies Allergies Allergy/AdvReac Type Severity Reaction Status Date / Time fluphenazine Allergy Unknown Verified 10/22/21 12:18 haloperidol [From Haldol] Allergy Unknown Verified 10/22/21 12:18 Assessment & Plan Assessment & Plan (1) Schizoaffective disorder: Status: Acute Code(s): F25.9 - Schizoaffective disorder, unspecified Plan 71-year-old gentleman resident of senior care with underlying history of psychotic disorder admitted to [facility] due to exacerbation of psychosis currently patient is awake alert denies acute medical complaints does not carry any past medical history, appears to be paranoid with bizarre delusions recommend to continue psych treatment. Plan: Change Depakote to Deapoket ER 500 mg po qhs and Zydis 15 mg po qhs 10/24 : Ct Rx plan. No med changes 10/25: Ct Rx plan 10/26: Continue meds unchanged, pt is delusional but calm and cooperative 10/31/ No change in medications. I spent minutes with the patient and/or on the patient floor today, greater than?50% of which was spent counseling/coordinating care. Reason for contiued inpatient stay Substantial Risk for: inability to function and rapid decompensation
[2021-11-01 19:56] VITALS: BP 102/54; PULSE 88; RESP 18; TEMP 36.8; O2SAT 97
[2021-11-01] MEDS: Divalproex Sodium ER 250 MG TAB.ER.24H 750 MG PO (20:25)
[2021-11-01] MEDS: OLANZapine ODT 10 MG TAB.RAPDIS 15 MG TRANSLINGU (20:25)
[2021-11-02 08:00] VITALS: BP 117/77; PULSE 85; RESP 17; TEMP 36.2; O2SAT 98
--- NOTE | 2021-11-02 13:25 | HO.PSYCHPN ---
Subjective Subjective Date of Service: 11/02/21 Reason For Visit: schizoaffective d/o Subjective Notes: Conditional Voluntary Interim History: the nursing staff reported the patient is pleasantly psychotic, stating that the president homes he money and he has other fixed delusions but he is easily redirectable. The child protective services social worker reported that she contact his primary team and most likely he will be discharged next Tuesday. On interview, the patient denies new symptoms he asked to lower his medications and I explained him that I add already lowered his Zyprexa since I had stopped the a.m. dose. Mental Status Exam Mental Status Exam Patient Appearance: Appropriate Patient Orientation: Person and Situation Level of Consciousness: Awake Patient Behavior: Cooperative Mood Description: Relaxed Affect Description: Constricted Patient Cognition Impaired: Yes Ability to Follow Directions: Good Speech Pattern: Appropriate Hallucinations: Auditory Delusions: Paranoid Ideation, Grandiose and Bizarre Thought Process: Illogical and Distracted Thought Content: positive for Circumstantial and positive for Poverty of Content Judgement: Fair Diagnostics Vital Signs (24Hr): Vital Signs - 24 hr 11/01/21 19:56 11/02/21 08:00 Temperature 98.3 F 97.1 F Pulse Rate 88 85 Respiratory Rate 18 17 Blood Pressure 102/54 L 117/77 Pulse Oximetry 97 98 BMI result Body Mass Index 24.9 Labs Results: 10/26/21 06:52 Medications Medications Current Medications Acetaminophen (Acetaminophen 325 Mg Tablet) 650 mg PO Q6H PRN PRN Reason: Headache/Pain Mild Scale (1-3) Al Hydroxide/Mg Hydroxide (Magnesium Hydrox/Alum Hydrox 30 Ml Oral.Susp) 30 ml PO Q6H PRN PRN Reason: Heartburn/Nausea Divalproex Sodium (Divalproex Sodium Er 250 Mg Tab.Er.24h) 750 mg PO BEDTIME [facility] Last Admin: 11/01/21 20:25 Dose: 750 mg Documented by: Hydroxyzine HCl (Hydroxyzine Hcl 25 Mg Tablet) 25 mg PO BEDTIME PRN PRN Reason: Anxiety Magnesium Hydroxide (Milk Of Magnesia 30 Ml Oral.Susp) 30 ml PO DAILY PRN PRN Reason: Constipation Olanzapine (Olanzapine 5 Mg Tablet) 5 mg PO BID PRN PRN Reason: Agitation Olanzapine (Olanzapine Odt 10 Mg Tab.Rapdis) 15 mg TRANSLINGU BEDTIME [facility] Last Admin: 11/01/21 20:25 Dose: 15 mg Documented by: Trazodone HCl (Trazodone Hcl 50 Mg Tablet) 50 mg PO BEDTIME PRN PRN Reason: Insomnia Allergies Allergies Allergy/AdvReac Type Severity Reaction Status Date / Time fluphenazine Allergy Unknown Verified 10/22/21 12:18 haloperidol [From Haldol] Allergy Unknown Verified 10/22/21 12:18 Assessment & Plan Assessment & Plan (1) Schizoaffective disorder: Status: Acute Code(s): F25.9 - Schizoaffective disorder, unspecified Plan 71-year-old gentleman resident of [facility] with underlying history of psychotic disorder admitted to [facility] due to exacerbation of psychosis currently patient is awake alert denies acute medical complaints does not carry any past medical history, appears to be paranoid with bizarre delusions recommend to continue psych treatment. Plan: Change Depakote to Deapoket ER 500 mg po qhs and Zydis 15 mg po qhs Start discharge plan I spent minutes with the patient and/or on the patient floor today, greater than?50% of which was spent counseling/coordinating care. Reason for contiued inpatient stay Substantial Risk for: inability to function, rapid decompensation and med/psych decompensation
[2021-11-02 20:06] VITALS: BP 132/74; PULSE 106; RESP 20; TEMP 36.8; O2SAT 97
[2021-11-02] MEDS: Divalproex Sodium ER 250 MG TAB.ER.24H 750 MG PO (20:21)
[2021-11-02] MEDS: OLANZapine ODT 10 MG TAB.RAPDIS 15 MG TRANSLINGU (20:22)
[2021-11-03 06:00] VITALS: BP 111/63; PULSE 94; RESP 14; TEMP 36.6; O2SAT 96
--- NOTE | 2021-11-03 10:04 | P.DS_ITS ---
DS: Providers Provider Date of Service: 11/03/21 Date of admission: 10/22/21 11:39 Date of discharge: 11/03/21 Primary care physician: Unknown Physician Consults: 10/22/21 15:32 Consult to Hospitalist Routine Consulting Provider: Hospitalist Reason For Exam: Pt is new admission. Attending physician on discharge: Min Salazar DS: Diagnosis Discharge Diagnosis (1) Schizoaffective disorder: Status: Acute DS: Medications Discharge Medications Home Medications: Home Medications Medication Instructions Recorded Confirmed divalproex 250 mg tablet,delayed 250 mg PO BID 10/22/21 10/22/21 release olanzapine 15 mg disintegrating 15 mg PO DAILY 10/22/21 10/22/21 tablet (Zyprexa Zydis) olanzapine 5 mg disintegrating 5 mg PO BID PRN 10/22/21 10/22/21 tablet (Zyprexa Zydis) Mental Status Exam Mental Status Exam Patient Appearance: Appropriate Patient Orientation: Person and Situation Level of Consciousness: Awake Patient Behavior: Guarded and Cooperative Mood Description: Appropriate Affect Description: Constricted and Depressed Patient Cognition Impaired: Yes Ability to Follow Directions: Good Speech Pattern: Clear Hallucinations: Auditory Delusions: Paranoid Ideation and Grandiose Thought Process: Distracted and Evasive Thought Content: positive for [place]um[place], positive for [place] and p ositive for Poverty of Content Judgement: Fair Data Data Completed and Pending Completed studies during hospitalization [Text1]: 10/30/21 08:52 Valproic Acid 41.6 L DS: Summary Hospital Course Hospital Course: the patient was admitted initially for exacerbation of psychotic symptoms in the context of noncompliance. Please see the HPI of the admission note for further details. On admission, the patient reported grandiose and paranoid delusions regarding the online merchandiser, people getting to his apartment and paranoia. We review his list of medications that he was on Depakote and Zyprexa that we restarted. We check Depakote levels and we titrated up to 750 mg a day with a therapeutic level. Also we discontinue Zyprexa in the morning since he was over-sedated and we moved all his Zyprexa at night. The staff contact he is [facility] team and apparently he has been chronically psychotic for several years but he was easily redirectable. The delusions about the president, the paranoia and other delusions if the statements have been around for several years. The patient was able to participate in groups, he was pleasant and cooperative but still elusive. He was fully compliant with treatment. Since the patient was back at his baseline discharge planning was discussed. The patient has a [facility] team, [facility] services, guardianship and overall years order and he is out of our catchment area. Since there were no safety concerns discharge planning was discussed and services restarted in the community. Time spent discussing smoking cessation with patient: 3 to 10 minutes Status at Discharge Cognitive/behavioral status at discharge: At baseline Functional status at discharge: independent ambulation Overall status at discharge: patient is back to baseline Time Spent with Patient Time attestation: Total time spent providing and/or coordinating discharge services: Time spent: Less than 30 minutes Discharge Plan Discharge Patient Disposition: Home, Self-Care Discharge Diagnosis: schizoaffective disorder bipolar type Referrals: Sulaiman Ibarra [Other] - 1 Week Lita Hyde NP [Other] - 11/30/21 1:00 pm (Your first appointment with Anna Hyde NP is scheduled for 11/30/21 at 1:00pm) Keisha Esteves [facility] [Other] - 11/13/21 2:00 pm (Your next therapy appointment with Keisha is 11/13/21 at 2pm. ) Sravani Dominique [facility] geriatric case manager [Other] - 11/04/21 (Your [facility] geriatric case manager Elijah toro will resume services and follow up with you after discharge. ) Bailey Herr [facility] ACCS program [Other] - 11/04/21 (Your Adult Community Clinical Services at [facility] will resume at time of discharge on 11/04/21. ) Discharge Medications: New olanzapine 10 mg Tablet,Disintegrating 15 mg translingual BEDTIME 30 Days Qty: 45 0RF divalproex 250 mg Tablet Extended Release 24 Hr 750 mg PO BEDTIME 30 Days Qty: 90 0RF Discontinued divalproex 250 mg Tablet,Delayed Release (Dr/Ec) 250 mg PO BID 0RF olanzapine [Zyprexa Zydis] 15 mg Tablet,Disintegrating 15 mg PO DAILY 0RF olanzapine [Zyprexa Zydis] 5 mg Tablet,Disintegrating 5 mg PO BID PRN (Reason: Agitation) 0RF Discharge Orders: Discharge Order (Routine); Ordered 11/03/21 Ordered By: Min Salazar Diet: advance to usual diet Activity on Discharge: As tolerated Stand Alone Forms: Patient Portal Discharge page Care Plan Goals: CARE PLAN GOALS ACHIEVED IN THIS ADMISSION Health Concerns: continue treatment as an outpatient a regular PCP Plan of Treatment: continue treatment as an outpatient as per [facility] team and providers Assessment: the patient is an elderly male with a long history of schizoaffective disorder bipolar type admitted for exacerbation of psychosis in the context of noncompliance. The patient was restarted on olanzapine and Depakote with some improvement of his chronic psychotic symptoms but no evidence of safety concerns.
== END 2021-11-03 17:10 | disposition home or self-care (01) | DRG 885 ==
PROVIDERS: Registered Nurse; Admitting Provider Psychiatry & Neurology Psychiatry; Visit Provider Psychiatry & Neurology Psychiatry
DX: F25.0 Schizoaffective disorder, bipolar type (principal); J45.909 Unspecified asthma, uncomplicated; E11.9 Type 2 diabetes mellitus without complications; I10 Essential (primary) hypertension; Z79.899 Other long term (current) drug therapy
CPT/HCPCS: 36415; 80061; 80076; 80164; 81003; 83036; 84443; 85025